=== PATIENT | male | born 1950 | race Caucasian/White ===

== ENCOUNTER 2016-07-18 19:53 | Emergency (ER) | payer BC ==
[~2016-07-18] VITALS: Ht 170.2 cm; Wt 65.0 kg
[2016-07-18 19:56] VITALS: BP 128/72; PULSE 126; RESP 16; TEMP 99.8; O2SAT 99
[2016-07-18] MEDS ORDERED: METF500T PO (20:17)
[2016-07-18] MEDS ORDERED: ONDANSETRON HCL 4 MG/2 ML VIAL IV PUSH ONE (20:30)
[2016-07-18] MEDS ORDERED: SODIUM CHLORID 0.9% 500 ML INJ 500 ML IV ONE ×2 (20:30→21:30)
[2016-07-18] MEDS ORDERED: ZOFR4TAB3 SL (20:42)
--- NOTE | 2016-07-18 20:42 | PD ---
HPI Chief Complaint: GI Complaint Time Seen by Provider: 20:19 Travel History International Travel<30 days: No Contact w/Intl Traveler<30days: No Traveled to known affect area: No History of Present Illness HPI The patient is 65 year old male who presents to the [facility] emergency department with a history of nausea, vomiting, and diarrhea that began yesterday morning. His is also being evaluated in the emergency department related to similar symptoms that began yesterday evening. The patient denies eating any unusual foods. He denies any recent antibiotic use. He denies any foreign travel. The patient reports that his stool is brown in color. He denies having any blood or mucus in his stool. He reports that he has had too many episodes of vomiting today count. He reports he's had diarrhea at least every 30 minutes. Is having generalized abdominal cramping that comes and goes. He reports that this is mainly located in the center of his abdomen. The patient reports that he has been taking Tylenol for the pain, thus he is unsure whether he had any fevers. Otherwise on review of systems, the patient denies any cough, congestion, neck pain, chest pain, shortness of breath, urinary symptoms, or neurologic symptoms. PFSH Past Medical History Narrative Medical The patient's past medical history is significant for diabetes mellitus. Diabetes: Yes Patient Takes Glucophage: Yes Past Surgical History Narrative Surgical The patient's past surgical history is significant for cholecystectomy. Cholecystectomy: Yes Social History Alcohol Use: No Tobacco Use: No Substance Use: No Allergies-Medications (Allergen,Severity, Reaction): Coded Allergies: No Known Allergies (Unverified , 07/18/16) Reported Meds & Prescriptions Reported Meds & Active Scripts Active Zofran Odt (Ondansetron Odt) 4 Mg Tab 4 Mg SL Q6HR PRN Reported Metformin (Metformin HCl) 500 Mg Tab 500 Mg PO BIDPC With meals Review of Systems Except as stated in HPI: all other systems reviewed are Neg General / Constitutional: No: Fever Eyes: No: Visual changes HENT: No: Headaches Cardiovascular: No: Chest Pain or Discomfort Respiratory: No: Shortness of Breath Gastrointestinal: Positive: Nausea, Vomiting, Diarrhea, Abdominal Pain, Changes in Bowel Habits, No: Hematemesis, Hematochezia, Constipation, Indigestion, Loss of Appetite Genitourinary: No: Urgency, Frequency, Dysuria Musculoskeletal: No: Pain Skin: No Rash Neurologic: No: Weakness, Focal Abnormalities, Change in Mentation, Slurred Speech, Sensory Disturbance Psychiatric: No: Depression Endocrine: No: Polydipsia Hematologic/Lymphatic: No: Easy Bruising Physical Exam Narrative General: The patient is a well-developed well-nourished male in no acute distress. Head and Neck exam: Head is normocephalic atraumatic. Eyes: EOMI, pupils are equal round and reactive to light. Nose: Midline septum with pink mucous membranes Mouth: Dentition unremarkable. Moist mucus membranes. Posterior oropharynx is not erythematous. No tonsillar hypertrophy. Uvula midline. Airway patent. Neck: No palpable lymphadenopathy. No nuchal rigidity. No thyromegaly. Cardiovascular: Sinus tachycardia in the 1 teens without murmurs, gallops, or rubs. No pulse deficit to the extremities and simultaneous auscultation and palpation of his radial artery. Lungs: Clear to auscultation bilaterally. No wheezes, rhonchi, or rales. Abdomen: Soft, with discomfort on palpation that is generalized with deep palpation, mainly located in the midepigastric area. No guarding, rebound, or rigidity. Normal bowel sounds are audible. No tenderness on palpation of McBurney's point. Negative Steinberg's sign. Extremities: No clubbing, cyanosis, or edema. 2+ pulses in all 4 extremities. No calf tenderness on palpation. Back: No costovertebral angle tenderness to palpation. Neurologic Exam: Grossly nonfocal. Skin Exam: No rash noted. Intact skin that is warm and dry. Data Data Last Documented VS Vital Signs Date Time Temp Pulse Resp B/P Pulse Ox O2 Delivery O2 Flow Rate FiO2 07/18/16 20:10 15 07/18/16 19:56 99.8 126 128/72 99 Room Air Orders Electrocardiogram (07/18/16 20:20) Complete Blood Count With Diff (07/18/16 20:20) Comprehensive Metabolic Panel (07/18/16 20:20) C-Reactive Protein (Crp) (07/18/16 20:20) Lipase (07/18/16 20:20) Urinalysis - C+S If Indicated (07/18/16 20:20) Iv Access Insert/Monitor (07/18/16 20:20) Ecg Monitoring (07/18/16 20:20) Oximetry (07/18/16 20:20) Lactic Acid Sepsis Protocol (07/18/16 20:20) Sodium Chlorid 0.9% 500 Ml Inj (Ns 500 M (07/18/16 20:30) Ondansetron Inj (Zofran Inj) (07/18/16 20:30) Sodium Chlor 0.9% 1000 Ml Inj (Ns 1000 M (07/18/16 20:45) Oral Rehydration (07/18/16 21:20) Sodium Chlorid 0.9% 500 Ml Inj (Ns 500 M (07/18/16 21:30) Ketorolac Inj (Toradol Inj) (07/18/16 22:45) Labs Laboratory Tests Test 07/18/16 07/18/16 20:35 22:20 White Blood Count 6.5 TH/MM3 Red Blood Count 5.63 MIL/MM3 Hemoglobin 17.0 GM/DL Hematocrit 50.8 % Mean Corpuscular Volume 90.2 FL Mean Corpuscular Hemoglobin 30.2 PG Mean Corpuscular Hemoglobin 33.5 % Concent Red Cell Distribution Width 14.2 % Platelet Count 193 TH/MM3 Mean Platelet Volume 8.3 FL Neutrophils (%) (Auto) 77.8 % Lymphocytes (%) (Auto) 9.4 % Monocytes (%) (Auto) 11.0 % Eosinophils (%) (Auto) 1.1 % Basophils (%) (Auto) 0.7 % Neutrophils # (Auto) 5.1 TH/MM3 Lymphocytes # (Auto) 0.6 TH/MM3 Monocytes # (Auto) 0.7 TH/MM3 Eosinophils # (Auto) 0.1 TH/MM3 Basophils # (Auto) 0.0 TH/MM3 CBC Comment DIFF FINAL Differential Comment Sodium Level 137 MEQ/L Potassium Level 3.9 MEQ/L Chloride Level 107 MEQ/L Carbon Dioxide Level 22.8 MEQ/L Anion Gap 7 MEQ/L Blood Urea Nitrogen 21 MG/DL Creatinine 1.23 MG/DL Estimat Glomerular Filtration 59 ML/MIN Rate Random Glucose 208 MG/DL Lactic Acid Level 1.1 mmol/L Calcium Level 8.5 MG/DL Total Bilirubin 0.3 MG/DL Aspartate Amino Transf 37 U/L (AST/SGOT) Alanine Aminotransferase 48 U/L (ALT/SGPT) Alkaline Phosphatase 115 U/L C-Reactive Protein 3.00 MG/DL Total Protein 9.0 GM/DL Albumin 4.0 GM/DL Lipase 111 U/L Urine Color YELLOW Urine Turbidity CLEAR Urine pH 6.0 Urine Specific [place] 1.027 Urine Protein TRACE mg/dL Urine Glucose (UA) 1000 mg/dL Urine Ketones NEG mg/dL Urine Occult Blood NEG Urine Nitrite NEG Urine Bilirubin NEG Urine Urobilinogen LESS THAN 2.0 MG/DL Urine Leukocyte Esterase NEG Urine RBC 1 /hpf Urine WBC 1 /hpf Urine Squamous Epithelial <1 /hpf Cells Urine Hyaline Casts 1 /lpf Urine Mucus FEW /lpf Microscopic Urinalysis Comment CULT NOT INDICATED MDM Medical Decision Making Medical Screen Exam Complete: Yes Emergency Medical Condition: Yes Medical Record Reviewed: Yes Differential Diagnosis Viral versus bacterial gastroenteritis, versus electrolyte derangements, versus dehydration Narrative Course During the course of the patients emergency department visit, the patients history, examination, and differential diagnosis were reviewed with the patient. The patient had IV access obtained and blood work sent for analysis. The patient was placed on a electronic device monitor with oximetry and blood pressure monitoring. The patient was initially provided normal saline a 1 L IV fluid bolus, Zofran 4 mg IV. The patient was given Toradol 15 mg IV times one. The patients laboratory studies were reviewed and remarkable for white count 6.5, hemoglobin 17, platelets 193 with 77.8 neutrophils, monocytes 11, CMP is remarkable for a BUN of 21, GFR 59, glucose 208, C-reactive protein 3, total protein 9.0, lipase 111. Lactic acid is 1.1. The patient was given an additional normal saline 500 mL bolus. The patient started on oral rehydration therapy. The patient's symptoms are consistent with a gastroenteritis as his is also experiencing similar symptoms. The patient will be discharged home with a prescription for Zofran. The patient tolerated by mouth hydration. The patient is resting comfortably and feels better, is alert and in no distress. The patients results and examination findings were discussed with the patient. The repeat examination is unremarkable and benign. The history, exam, diagnostic testing, and current condition do not suggest any significant pathology to warrant further testing, continued ED treatment, admission, or surgical evaluation at this point. The vital signs have been stable. The patient does not have uncontrollable pain, intractable vomiting, or other significant symptoms. The patient's condition is stable and appropriate for discharge. The patient will pursue further outpatient evaluation with a primary care physician or other designated or consulting physician as indicated in the discharge instructions. The patient expressed understanding and was agreeable with this plan. Diagnosis Primary Impression: Nausea, vomiting, and diarrhea Referrals: Primary Care Physician 3 days Patient Instructions: Acute Diarrhea (ED), Acute Nausea and Vomiting (ED), General Instructions Med/Other Pt SpecificInfo: Prescription(s) given Scripts Ondansetron Odt (Zofran Odt)4 Mg Tab4 Mg SL Q6HR PRN (Nausea/Vomiting) #7 TAB Ref 0 Prov:Muriel Cortez MD 07/18/16 Disposition: DISCHARGE HOME Condition: Stable Muriel Cortez MD July 18, 2016 20:42
[2016-07-18 20:44] LABS: AUTOMATED NEUTROPHIL # 5.1 TH/MM3 (1.8-7.7); BASOPHIL % 0.7 % (0.0-2.0); EOSINOPHIL # 0.1 TH/MM3 (0-0.4); EOSINOPHIL % 1.1 % (0.0-4.0); HEMATOCRIT 50.8 % (39.0-51.0); HEMO FLAGS DIFF FINAL; LYMPH % 9.4 % (9.0-44.0); LYMPHOCYTE # 0.6 TH/MM3 (1.0-4.8); MEAN CELL VOLUME 90.2 FL (80.0-100.0); MEAN CORPUSCULAR HEMOGLOBIN 30.2 PG (27.0-34.0); MEAN CORPUSCULAR HGB CONC 33.5 % (32.0-36.0); NEUT % 77.8 % (16.0-70.0); PLATELET COUNT 193 TH/MM3 (150-450); RED BLOOD COUNT 5.63 MIL/MM3 (4.50-5.90); RED CELL DISTRIBUTION WIDTH 14.2 % (11.6-17.2); WHITE BLOOD COUNT 6.5 TH/MM3 (4.0-11.0)
[2016-07-18] MEDS ORDERED: SODIUM CHLOR 0.9% 1000 ML INJ 1,000 ML IV ONE (20:45)
[2016-07-18 21:14] LABS: ANION GAP 7 MEQ/L (5-15); AST (GOT) 37 U/L (15-37); BICARBONATE 22.8 MEQ/L (21.0-32.0); BLOOD UREA NITROGEN 21 MG/DL (7-18); CHLORIDE 107 MEQ/L (98-107); GLOMERULAR FILTRATION RATE 59 ML/MIN (>89); POTASSIUM 3.9 MEQ/L (3.5-5.1); SODIUM (NA) 137 MEQ/L (136-145)
[2016-07-18 21:17] LABS: ALKALINE PHOSPHATASE 115 U/L (45-117); ALT (GPT) 48 U/L (12-78); TOTAL BILIRUBIN ADULT 0.3 MG/DL (0.2-1.0)
[2016-07-18] MEDS ORDERED: KETOROLAC TROMETHAMINE 30 MG/ML (IVP) VIAL IV PUSH ONE (22:45)
[2016-07-18 22:57] LABS: BLOOD, URINE NEG (NEG); COMMENT (UR) CULT NOT INDICATED; CULTURE IF INDICATED CULT NOT INDICATED; GLUCOSE,URINE 1000 mg/dL (NEG); HYALINE CAST, URINE 1 /lpf (RARE); KETONE, URINE NEG (NEG); MUCUS URINE FEW /lpf (OCC); NITRITE,URINE NEG (NEG); SQUAMOUS EPITHELIAL CELL URINE <1 /hpf (0-5); URINE COLOR YELLOW (YELLW/STRAW)
== END 2016-07-18 23:53 | disposition home or self-care (01) ==
LOC: NEPC 19:53
DX: R11.2 Nausea with vomiting, unspecified (principal); R19.7 Diarrhea, unspecified
CPT/HCPCS: 80053; 81001; 83605; 83690; 85025; 86140; 96374; 96375; 99284; J1885; J2405; J7030; J7040